=== PATIENT | female | born 1960 | race Caucasian/White ===

== ENCOUNTER → 2023-12-24 08:05 | Outpatient (REF) | payer BC, SELFPAY | LOC: RCS 08:05 | PROVIDERS: ATTENDING PHYSICIAN Internal Medicine Cardiovascular Disease; FAMILY PHYSICIAN Internal Medicine Geriatric Medicine | DX: I63.9 Cerebral infarction, unspecified (principal); E78.5 Hyperlipidemia, unspecified | CPT/HCPCS: 93307 ==

== ENCOUNTER → 2024-01-03 12:34 | Outpatient (REF) | payer BC, SELFPAY | LOC: PAVMRI 12:34 | PROVIDERS: ATTENDING PHYSICIAN Psychiatry & Neurology Neurology; FAMILY PHYSICIAN Internal Medicine Geriatric Medicine; OTHER PHYSICIAN Internal Medicine Cardiovascular Disease; OTHER PHYSICIAN Physical Medicine & Rehabilitation | DX: H93.12 Tinnitus, left ear (principal); H91.90 Unspecified hearing loss, unspecified ear; G89.29 Other chronic pain; R51.9 Headache, unspecified; I63.9 Cerebral infarction, unspecified | CPT/HCPCS: 70544; 70549; A9585 ==

== ENCOUNTER → 2024-02-26 17:18 | Outpatient (REF) | payer BC, SELFPAY | LOC: PAVMRI 17:18 | PROVIDERS: ATTENDING PHYSICIAN Physical Medicine & Rehabilitation; FAMILY PHYSICIAN Internal Medicine Geriatric Medicine; OTHER PHYSICIAN Physical Medicine & Rehabilitation | DX: M48.062 Spinal stenosis, lumbar region with neurogenic claudication (principal); M47.816 Spondylosis without myelopathy or radiculopathy, lumbar region; M48.02 Spinal stenosis, cervical region | CPT/HCPCS: 72141; 72148 ==

== ENCOUNTER → 2024-04-01 12:26 | Outpatient (REF) | payer BC, SELFPAY ==
[2024-04-04 06:57] LABS: Cardiolipin IgA Antibody <10 APL (<=11); Cardiolipin IgM Antibody <10 MPL (<=12); Cardiolipin Igg Antibody <10 GPL (<=14)
== END ==
LOC: REG 12:26
PROVIDERS: ATTENDING PHYSICIAN Internal Medicine Hematology & Oncology
DX: I63.9 Cerebral infarction, unspecified (principal)
CPT/HCPCS: 36415; 85610; 85613; 85730; 86147; 86148

== ENCOUNTER 2024-07-22 03:55 | Emergency (ER) | payer BC, SELFPAY ==
[2024-07-22 04:00] VITALS: BP 140/88
[2024-07-22] MEDS: TORADOL 60 MG IM (04:45)
--- NOTE | 2024-07-22 05:00 | ED.GENMED ---
History of Present Illness
General
Chief Complaint: Musculo-Skeletal Complaint
Source: patient and spouse
Exam Limitations: none
Time Seen by Provider: 07/22/24 04:20
Nursing documentation reviewed up to this point in time: agreed with
History of Present Illness
History of Present Illness:
This is a 64-year-old woman who has history of hypertension, hyperlipidemia, GERD, CVA, left ear tinnitus, chronic pain syndrome chronically maintained on oxycodone 10 mg 4 times daily as well as as needed Robaxin. She has history of cervicogenic
migraines, receives Botox injections sporadically. She presents with left posterior lateral neck pain that began yesterday afternoon, persistent throughout the evening. Left posterior lateral neck pain radiates to her left posterior shoulder and
occasionally down her left arm. She denies insightful injury but admits that pain is worse with rotation of her neck, worse with movement of her shoulder and mildly temporized with local massage. She took a dose of Percocet yesterday evening
without relief and then took Tylenol and a muscle relaxer at 11 PM without relief.
She has not had a fever, she denies insightful injury but has been gardening recently and underwent acupuncture treatment last week to the posterior neck and upper back and admits that solar technician aggressively massage her neck and upper back and
she was moderately sore the following day but then that pain resolved. She denies headache, denies weakness nor numbness. She denies rash. No chest pain nor coughing or shortness of breath, no palpitations.
Past History
Past History
ED Past Medical History: CVA, GERD, HTN, Hypercholesterolemia, Other (Chronic low back pain-narcotic dependent) and Other (Cervicogenic migraines, left ear tinnitus)
ED Past Surgical History: Gynecological (Tubal ligation) and Other (Nasal surgery)
Social History
Tobacco: Non-smoker
Alcohol: Occasional
Personal:
Living: with family
Employment: Employed
Family History
Family History: Negative Diabetes
Phy Exam
Physical Exam
Physical Exam:
GENERAL: 64-year-old woman appears her stated age, awake and alert, pleasant, appears in no acute distress, holding her left upper trapezius region with her right hand. is accompanying.
EYE: anicteric
NECK: Supple, no midline bony tenderness, mild tenderness left posterior lateral region with mild ropiness of left paracervical musculature as well as moderate tenderness left superior trapezius with palpable muscle spasm left superior medial
trapezius muscle. No meningismus, no significant adenopathy. Mildly restricted left rotation related to pain.
ENT: oral mucosa is moist. No rhinorrhea.
CARDIAC: Regular rate and rhythm. no murmur. No chest wall tenderness.
LUNGS: Clear breath sounds bilaterally, no acute respiratory distress, no wheezes/rales/rhonchi
ABDOMEN: Soft, nondistended, without focal tenderness, normoactive BS.
NEUROLOGICAL: Alert and oriented x3, no focal neuro deficits. Motor strength is 5/5 bilaterally. Gross sensation is intact. Gait is lara and steady.
SKIN: Warm and dry, normal color, moderate buckley sun exposed skin, skin intact. No rash.
MUSCULOSKELETAL: No C/C/E. peripheral pulses are full and equal b/l. No palpable tenderness. Mildly increased left posterior shoulder pain with abduction greater than 110 degrees. Range of motion however is full.
PSYCH: Normal and appropriate interaction.
Course
Orders/Labs/Results
Orders:
Orders
07/22/24 04:36
Ketorolac [Toradol] 60 mg IM NOW STA
Vital Signs
Initial and Last Documented VS:
Initial Vital Signs
Temp Pulse Resp BP Pulse Ox
98.9 F 69 20 140/88 100
07/22/24 04:00 07/22/24 04:00 07/22/24 04:00 07/22/24 04:00 07/22/24 04:00
Last Documented Vital Signs
Temp Pulse Resp BP Pulse Ox
98.9 F 69 20 140/88 100
07/22/24 04:00 07/22/24 04:00 07/22/24 04:00 07/22/24 04:00 07/22/24 04:00
MDM/Problems Addressed
Differential Diagnosis Includes:
History and exam most consistent with musculoskeletal pain. Palpable muscle spasm left superior trapezius, left posterior lateral cervical musculature.
Reports intermittent pain to her left shoulder and I suspect an element of radicular pain but there is no focal neurologic deficit. No associated chest pain, nothing to suggest ACS.
Pain is clearly reproducible with local palpation and with rotation of her neck and movement of her shoulder.
Although reported history of GERD, maintained on PPI and has successfully taken NSAIDs in the past without exacerbation.
No insightful injury thus no indication for radiologic imaging.
Will trial a dose of Toradol.
*Pulse Oximetry
Patient hypoxic: no
*Critical Care Note
Total Time (30-74mins, 75-104mins- exclusive of procedures): Not Applicable
Update Note
Update Note:
07/22/2024 0607 AM
Patient reexamined, lying on her left side, sleeping, easily arousable.
Reports feeling markedly improved with marked improvement in left lateral neck, left shoulder discomfort after Toradol.
Will treat with short course of ibuprofen for pain.
Recommend she continue supportive measures, local heat, she can also trial lidocaine patch.
Continue PPI for GI protection and recommend she take ibuprofen with food.
Prompt follow-up with PCP for recheck.
ED Attending Note
-
Portions of this chart may have been created with voice recognition software.� Occasional wrong word or��sound alike� substitutions may have occurred due to the inherent limitations of voice recognition software.
Discharge Plan
Departure
Patient Disposition: Home (Routine Discharge)
Date of Disposition: 07/22/24
Time of Disposition: 06:07
Patient with high blood pressure during this ER visit?: No
Condition: Good
Discharge Problem:
Strain of cervical portion of left trapezius muscle
Instructions: Cervical Muscle Strain
Prescriptions:
New
ibuprofen 600 mg tablet
600 mg PO QID PRN (Reason: fever or pain) Qty: 20 0RF
No Action
atorvastatin 40 MG tablet
40 mg PO DAILY
lisinopril 5 MG tablet
5 mg PO .IN THE AM
multivitamin [Multi-Day] 1 EACH tablet
1 ea PO DAILY
pantoprazole 20 MG tablet,delayed release (DR/EC)
20 mg PO BID
bupropion HCl 300 MG tablet extended release 24 hr
300 mg PO DAILY
Magnesium
1 tab PO DAILY
Vitamin C:
1 tab PO DAILY
Vitamin D
1,000 units PO DAILY
ibuprofen 600 MG tablet
600 mg PO PRN PRN (Reason: pain)
cefdinir [Omnicef] 300 MG capsule
300 mg PO BID Qty: 0 0RF
Referrals:
Abilio Kramer DO [Family Provider] - Call in 1-3 days for appt
Interventions
Interventions:
*Risk Screen - Suicide Last Done: 07/22/24 04:00
*General Assessment Last Done: 07/22/24 04:00
*Neglect/Abuse Screening Last Done: 07/22/24 04:00
ED- Fall Risk Assessment Last Done: 07/22/24 04:00
ED-Musculoskeletal Assessment Last Done: 07/22/24 04:21
Discharge Date and Time
Print Language: KIS[place]HILI
== END 2024-07-22 06:46 | disposition home or self-care (01) ==
LOC: EMR 03:55
PROVIDERS: EMERGENCY PHYSICIAN Emergency Medicine; FAMILY PHYSICIAN Internal Medicine Geriatric Medicine
DX: S16.1XXA Strain of muscle, fascia and tendon at neck level, initial encounter (principal); S29.012A Strain of muscle and tendon of back wall of thorax, initial encounter; X58.XXXA Exposure to other specified factors, initial encounter; E78.00 Pure hypercholesterolemia, unspecified; I10 Essential (primary) hypertension; K21.9 Gastro-esophageal reflux disease without esophagitis; Z86.73 Personal history of transient ischemic attack (TIA), and cerebral infarction without residual deficits; Z98.51 Tubal ligation status
CPT/HCPCS: 99282; 96372

== ENCOUNTER → 2024-10-29 07:05 | Day surgery (SDC) | payer BC, SELFPAY | END | disposition home or self-care (01) | LOC: CATH 07:05 | PROVIDERS: ATTENDING PHYSICIAN Internal Medicine Cardiovascular Disease; FAMILY PHYSICIAN Internal Medicine Geriatric Medicine; OTHER PHYSICIAN Internal Medicine Cardiovascular Disease | DX: I08.3 Combined rheumatic disorders of mitral, aortic and tricuspid valves (principal); Z86.73 Personal history of transient ischemic attack (TIA), and cerebral infarction without residual deficits; I10 Essential (primary) hypertension; E78.5 Hyperlipidemia, unspecified; K21.9 Gastro-esophageal reflux disease without esophagitis; Q21.12 Patent foramen ovale; Z79.82 Long term (current) use of aspirin | CPT/HCPCS: 93312; 93320; 93325 ==

== ENCOUNTER 2025-01-05 12:27 | Day surgery (SDC) | payer BC, SELFPAY ==
[2025-01-05 12:42] VITALS: BMI 23.9
--- NOTE | 2025-01-05 14:42 | ITS.CL.IMPLP ---
Industrial Pharmacist - Implant Loop
Implant Loop
Procedure Report:
Date of Procedure: 2024
Primary Care Provider: Dr. Abilio Worrell
Primary asic design engineer: Dr. Eva Whitehead
Procedure: Insertable Loop Recorder Implantation
Indication:
Cryptogenic CVA
Procedure:
The patient was brought to the procedure area in a fasting state. The anterior chest was prepped and draped in standard sterile fashion. The fourth intercostal space along the left sternal border was identified and this area was anesthetized with 10
mL of 1% lidocaine. After gathering the skin in this area, a small punch incision was made at approx intercostal space 4-5 at left costo-sternal junction using the provided scalpel/punch tool. The loop recorder was loaded into the tunneling device.
A tunnel was created in the subcutaneous tissue at a 45� angle along the coronal plane away from the sternum and towards the left flank. The tunneling device was inverted and the plunger was depressed, inserting the loop recorder into the
subcutaneous space. The tunneling device was removed. Manual pressure provide hemostasis. Adequate signal was confirmed. The skin was closed with steri-strips. The estimated blood loss was < 1 cc. A clean dressing was placed over the wound.
There were no complications.
Implant:
[employer]onic Reveal LINQ
Conclusion: Uncomplicated implantation of loop recorder.
Recommendation: Routine ILR care.
Copy:
Dr. Abilio Worrell
Dr. Eva Whitehead
== END 2025-01-05 13:36 | disposition home or self-care (01) ==
LOC: CATH 12:27
PROVIDERS: ATTENDING PHYSICIAN Internal Medicine Cardiovascular Disease; FAMILY PHYSICIAN Internal Medicine Geriatric Medicine; OTHER PHYSICIAN Internal Medicine Cardiovascular Disease
DX: Z09 Encounter for follow-up examination after completed treatment for conditions other than malignant neoplasm (principal); Z86.73 Personal history of transient ischemic attack (TIA), and cerebral infarction without residual deficits; Z79.82 Long term (current) use of aspirin; Z79.899 Other long term (current) drug therapy
CPT/HCPCS: 33285; C1764

== ENCOUNTER 2025-05-04 06:08 | Day surgery (SDC) | payer BC, SELFPAY ==
[2025-04-29 09:27] VITALS: BMI 25.3
[2025-04-29 09:53] LABS: % Basophils 0.5 % (0-2); % Eosinophils 1.8 % (0-6); % Immature Granulocytes 0.2 % (0-0.5); % Lymphocytes 34.6 % (20.5-51.1); % Monocytes 10.1 % (1.7-9.3); % Neutrophils 52.8 % (42.2-75.2); Absolute Eosinophils 0.1 10^3/uL (0-0.7); Absolute Lymphocytes 2.1 10^3/uL (1.2-3.4); Absolute Monocytes 0.6 10^3/uL (0.1-0.6); Absolute Neutrophils 3.2 10^3/uL (1.4-6.5); Hematocrit 38.4 % (37.0-47.0); Hemoglobin 13.1 g/dL (12.0-16.0); Mean Corp Hgb Conc. 34.1 g/dL (33.0-37.0); Mean Corpuscular Volume 85.1 fL (81.0-99.0); Mean Platelet Volume 8.7 fL (7.4-10.4); Nucleated Red Blood Cells % 0 %; Platelet Count 342 10^3/uL (130-400); Red Blood Cell Count 4.51 10^6/uL (4.20-5.40); Red Cell Dist. Width 14.1 % (11.5-14.5)
[2025-04-29 10:24] LABS: ALT (SGPT) 31 U/L (0-35); AST (SGOT) 30 U/L (14-36); Albumin 4.3 g/dl (3.5-5.0); Alkaline Phosphatase 81 U/L (38-126); Blood Urea Nitrogen 18 mg/dl (7-17); Calcium 9.7 mg/dl (8.4-10.2); Carbon Dioxide 30 mmol/L (22-30); Chloride 103 mmol/L (98-107); Estimated Creatinine Clearance 61 ml/min; Glucose 90 mg/dl (70-99); Potassium 4.1 mmol/L (3.5-5.1); Sodium 138 mmol/L (135-145); Total Bilirubin 0.6 mg/dl (0.2-1.3); Total Protein 6.8 g/dl (6.3-8.2); eGFR > 60.00
[2025-05-04] VITALS (27 sets, daily range): BP systolic 109–151; BP diastolic 63–113; BMI 23.9
[2025-05-04] MEDS: LOW STRENGTH ASPIRIN 81 MG PO (07:27)
[2025-05-04] MEDS: PLAVIX 600 MG PO (07:27)
[2025-05-04] MEDS: ANCEF 10 IV (07:40)
[2025-05-04 08:46] LABS: ACT-LR - POC 258 Seconds (116-155)
[2025-05-04 08:54] LABS: ACT-LR - POC 313 Seconds (116-155)
[2025-05-04 09:16] LABS: ACT-LR - POC 295 Seconds (116-155)
--- NOTE | 2025-05-04 10:08 | ITS.CL.PN ---
Addendum entered and electronically signed by Payton Fink MD 05/05/25 14:48:
Correction:
1. Right common femoral vein, 9 Colombian sheath (11cm), under ultrasound guidance using a micropuncture kit.
2. Right common femoral vein, 9 Colombian sheath (23cm), under ultrasound guidance using a micropuncture kit.
Ultrasound was utilized for vascular access. The right femoral vein were visualized under ultrasound, and the vessel was patent. An image was stored permanently in the patient's medical record. Under direct ultrasound guidance, two 9 Colombian
sheaths (11cm and 23cm) were inserted into the right common femoral vein, using a micropuncture kit through a modified Seldinger technique.
Addendum entered and electronically signed by Payton Fink MD 05/05/25 14:33:
Addendum:
Procedures performed: 1. Percutaneous PFO closure with 30 mm Amplatzer Talisman PFO Occluder (REF #[id number] ; LOT #[id number])
2. Right heart catheterization.
3. US guided access.
ACCESS (CPT 37163 x 2):
1. Right common femoral vein, 9 Colombian sheath (11cm), under ultrasound guidance using a micropuncture kit.
2. Left common femoral vein, 8 Colombian sheath (23cm), under ultrasound guidance using a micropuncture kit.
Ultrasound was utilized for vascular access. The right femoral vein were visualized under ultrasound, and the vessel was patent. An image was stored permanently in the patient's medical record. Under direct ultrasound guidance, two 9 Colombian
sheaths (11cm and 23cm) were inserted into the right common femoral vein, using a micropuncture kit through a modified Seldinger technique.
Payton Fink MD, [facility], [facility]
Original Note:
Personnel And Payroll Technician - Procedure Note
Procedure
Procedure Note:
RIGHT HEART CATHETERIZATION AND PATENT FORAMEN OVALE (PFO) CLOSURE
Date of procedure: May 04, 2025
Referring physician: Eva Whitehead MD
Pre-op diagnosis: Cryptogenic stroke, presence of PFO
Post-op diagnosis: Cryptogenic stroke, presence of PFO
Indication: Cryptogenic stroke
Procedure performed: Percutaneous PFO closure with 30 mm Amplatzer Talisman PFO Occluder (REF #[id number] ; LOT #[id number])
art history professor: Payton Fink MD, [facility], [facility]
Type of echocardiography: Intracardiac Echocardiography (ICE)
Access:
1. Two 9 Colombian sheaths (9Fr x 11cm and 9Fr x 25cm) in the right common femoral vein using a micropuncture kit under US guidance.
RIGHT HEART CATHETERIZATION
Hemodynamics (mmHg):
RA (m) : 9
RV (s/d,m) : 28/6, 10
PA (s/d, m) : 26/12, 17
PCWP (m) : 14
PA saturation: 79.3% on 8L Oxygen
AO saturation non-invasively 97.0% on 8L Oxygen
Pulm Vein saturation: 99.9% on 8L Oxygen
Cardiac Output: 5.3 L/min by Derek calculation
Cardiac Index : 3.2 L/min/m-2 by Derek calculation
Systemic vascular resistance: 1092 dsc^(-5)
Pulmonary vascular resistance: 1.31 Wood unit
Procedure:
The patient was brought to the interventional cardiology suite in fasting state. The patient was given Plavix 600mg pre-procedurally and Ancef IV was given by Anesthesia. Bilateral femoral areas were prepped and draped in standard sterile fashion.
The right femoral vein was accessed about 1cm apart twice using a modified Seldinger technique and two 9 Colombian sheaths were placed 1 is below the other (short 9 Colombian by 11 cm on the top and a long 9 Colombian by 25 cm at the bottom. Full dose IV
heparin was given to achieve an ACT greater than 300 seconds, which was maintained throughout the procedure. After confirming that there was no significant step up on the shunt run by performing a right heart catheterization, ICE catheter was
advanced through the 9 Colombian by 25 cm venous sheath and basic images were obtained and saved including the view of the interatrial septum and the PFO seen by color Doppler. Using ICE and fluoroscopy guidance, a 0.035' J wire was advanced from the
right femoral vein and up into the right atrium and a 6Fr. multipurpose catheter was advanced over this wire. The J-wire was removed and catheter was flushed. A Avilez wire was advanced through the multipurpose catheter and after multiple passes we
successfully crossed the PFO into the left atrium. The multipurpose catheter was advanced over the wire into the left upper pulmonary vein. The wire was removed and the catheter was flushed. A 0.035 superstiff Amplatz wire was advanced through the
multipurpose catheter and parked into the left upper pulmonary vein.
The multipurpose catheter was removed. The 9 Colombian sheath was removed. Based on the anatomy (very mobile interatrial septal aneurysm and securing diam thickness of 9 mm), we decided to move forward with implantation of a 30 mm Amplatzer Talisman
PFO Occluder device. On the back table, we turned our attention to prepping the closure device. A 30 mm Amplatzer Talisman PFO Occluder device was placed in a bowl of heparinized saline. The Tuohy-Gaye valve and its extension were appropriately
flushed. The device was submerged in saline and the valve and extension were slowly flush with water while the occlusion device was retracted into it, ensuring that the device was completely de-aired.
The 9 Colombian Talisman delivery sheath was advanced over the Super Stiff Amplat'sz wire into the IVC. The dilator was retracted at this point to completely de-aired the system. The sheath itself was then advanced over the Super Stiff Amplatz wire
into the left atrium and the Super Stiff wire was taken out. The sheath was de-aired and flushed. We connected the sheath with the closure device assembly with a wet to wet connection. The occluder was advanced through the sheath and into the left
atrium. Left atrial disc was deployed. The entire assembly was retracted until the left atrial disc was firmly against the interatrial wall under fluoroscopy and ICE guidance. The right atrial disc was deployed under tension and allowed to settle on
the right atrial side of the septum.
Echocardiographic images were obtained in multiple views showing good placement of the occlusion device. The interatrial septum is clearly visible between the 2 discs. The discs do not appear to be interfering with the aorta. After performing
appropriate pushing and pulling of the device to ensure good placement ([place] wiggle), the device was released. Once again, echocardiography confirmed good placement. ICE catheter was then taken out.
The Talisman sheath and the 9Fr x 25mm sheath was removed from the right femoral vein and a [id number] suture was placed over access site with good hemostasis. Additional manual pressure was held for 10 minutes. The patient tolerated the
procedure well with no acute complications. She remained hemodynamically stable throughout the procedure.
Fluoro Time: 9.6 min, Dose: 44.95 mGy, DAP : 5.9 gy.cm2
Conclusions:
1. Successful ICE guided percutaneous PFO closure with 30 mm Amplatzer Talisman PFO Occluder (REF #[id number] ; LOT #[id number]) with no acute complications.
Recommendations:
1. Routine care post PFO closure.
2. Limited weight bearing for 2 days.
3. DAPT with aspirin and clopidogrel for 6 months, followed by aspirin indefinitely.
4. Limited echocardiogram prior to discharge.
5. Removal of [id number] stitch prior to discharge.
6. Repeat echocardiogram with bubble study in 1 month with outpatient cardiology follow up.
Payton Fink MD, [facility], [facility]
Copy: Eva Whitehead MD
[2025-05-04] MEDS: SUBLIMAZE 25 MCG IV ×2 (12:49→14:24)
[2025-05-04] MEDS: ANCEF 5 IV (14:20)
[2025-05-04] MEDS: ROXICODONE 10 MG PO ×2 (16:31→20:48)
[2025-05-04] MEDS: TYLENOL 325 MG PO ×2 (16:32→20:47)
--- NOTE | 2025-05-04 18:26 | PTCARENOTE ---
Received pt from rd lab technician. VSS. Right groin dressing clean, dry and intact. Minimal ecchymosis noted, medially. No hematoma noted. Pt c/o minimal tenderness. Orders noted. Will monitor.
[2025-05-04] MEDS: DIOVAN 80 MG PO (20:47)
[2025-05-04] MEDS: AMBIEN 10 MG PO (23:23)
[2025-05-05 05:16] VITALS: BP 93/57
[2025-05-05] MEDS: TYLENOL 325 MG PO (05:44)
--- NOTE | 2025-05-05 05:58 | PTCARENOTE ---
500 am right groin cath site assessment presented with a bloody drsg,slight hematoma unchanged in size from 2am,dsrg removed,2 puncture sites slow ooze of blood,pressure applied with a sterile drsg,then quickly removed and a hemostat pad,sterile
drsg replaced and kris pressure applied for 5minutes and then sandbag. Pt medicated with Oxycodone due to chronic back pain.Close observation ongoing,VS stable.
k
[2025-05-05 06:03] LABS: Hematocrit 34.7 % (37.0-47.0); Mean Corp Hgb Conc. 34.6 g/dL (33.0-37.0); Mean Corpuscular Hgb 29.1 pg (27.0-31.0); Mean Platelet Volume 8.8 fL (7.4-10.4); Platelet Count 258 10^3/uL (130-400); Red Blood Cell Count 4.13 10^6/uL (4.20-5.40); Red Cell Dist. Width 14.5 % (11.5-14.5); White Blood Cell Count 8.7 10^3/uL (4.8-10.8)
[2025-05-05 06:15] LABS: Blood Urea Nitrogen 17 mg/dl (7-17); Calcium 9.4 mg/dl (8.4-10.2); Carbon Dioxide 30 mmol/L (22-30); Chloride 108 mmol/L (98-107); Estimated Creatinine Clearance 77 ml/min; Glucose 89 mg/dl (70-99); Potassium 3.6 mmol/L (3.5-5.1); Sodium 141 mmol/L (135-145); eGFR > 60.00
--- NOTE | 2025-05-05 06:48 | PTCARENOTE ---
Right groin assessed again at this time,drsg is bloody but contained,sandbag reapplied,pt was medicated with Oxycodone for back pain,pt stated her back did feel slightly better.Close observation ongoing.
--- NOTE | 2025-05-05 07:00 | PTCARENOTE ---
Right groin checked with on coming RN,jose luisg unchanged,sandbag intact.
[2025-05-05 08:12] VITALS: BP 107/60
[2025-05-05] MEDS: ROXICODONE 10 MG PO (08:33)
--- NOTE | 2025-05-05 09:18 | W.PN.CARDCBS ---
Addendum entered and electronically signed by Payton Fink MD 05/05/25 11:47:
I saw and examined the patient.
The Entry Table Operator's note was reviewed and I agree with the note.
Comment: Patient is status post successful 30 mm PFO occluder device yesterday, May 04, 2025. She stayed overnight given mild ongoing ooze at one of the 2 right common femoral venous access sites. Hemoglobin remained stable overnight.
Vital signs and lab work are reviewed. Patient is in mild distress due to chronic back pain and being on bedrest, regular rate, normal S1 and S2, no murmurs, rubs or gallops, lungs are clear to auscultation bilaterally, abdomen is soft, nontender,
nondistended with active bowel sounds, warm extremities without significant edema. Right common femoral access site with mild ongoing ooze but without evidence of any hematoma or bruit.
Recommendations:
1. Recurrent pressure was held by me and I placed D-Stat band was applied this morning which seems to have halted use for now. We will get her out of bed into a chair and ambulate to assess if the right groin site continues to remain stable.
Given no evidence of hematoma or bruit on exam, holding off on any imaging studies for now unless she continues to bleed.
2. Plan is for dual antiplatelet therapy with aspirin and Plavix for 6 months and 1 month repeat limited transthoracic echocardiogram as an outpatient with a bubble study.
3. I reviewed the limited echocardiogram post procedurally yesterday afternoon which showed no evidence of effusion and an otherwise stable device with no color-flow Doppler through it.
Anticipate discharge later today.
Payton Fink MD, [facility], [facility]
Total time spent: 31mins
Original Note:
Today's Communication / Plan
-
post PFO closure, post op slow groin ooze
DAPT ASA/Plavix 6mo, then ASA 81mg daily
poss home later today if groin site stable
Impression / Plan
-
PCP: Abilio Kramer, DO
CDY: Eva Whitehead MD
Impression:
Cryptogenic stroke 12/03/23
PFO post PFO closure 05/04/25
HTN
Hyperlipidemia
Tinnitus
Hyperthyroidism
DDD/Spinal stenosis with chronic pain
GERD
Anxiety/Depression
former smoker
Plan:
post PFO closure, had issues with R groin ooze o/n admitted for observation
Groin continued to have slow ooze through the night, multiple manual compression attempts, and lido/epi injections
Hbg stable at 12
post procedure ECHO with no leak, will need f/u Echo with bubble in 1 mo
DAPT ASA/Plavix for 6 mo, then ASA 81mg daily
continue valsartan, HCTZ for HTN
chronic back pain- continue pain meds, methocarbamol PRN
Activity restrictions reviewed
f/u Dr. Velasquez in 1 mo
If groin stable when oob plan for home later today
Progress Note - Food And Beverage Controller
Subjective
Date of Service: May 05, 2025
denies cp, sob, chronic back pain, unable to void in bed, st cath this am
Objective
Labs:
05/05/25 05:19
05/05/25 05:19
Labs
Hgb 12.0 g/dL (12.0-16.0) 05/05/25 05:19
Hct 34.7 % (37.0-47.0) L 05/05/25 05:19
Plt Count 258 10^3/uL (130-400) D 05/05/25 05:19
Sodium 141 mmol/L (135-145) 05/05/25 05:19
Potassium 3.6 mmol/L (3.5-5.1) 05/05/25 05:19
BUN 17 mg/dl (7-17) 05/05/25 05:19
Creatinine 0.6 mg/dL (0.6-1.0) 05/05/25 05:19
Glucose 89 mg/dl (70-99) 05/05/25 05:19
Vital Signs and I&O:
Vital Signs
Temp Pulse Resp BP Pulse Ox
98.1 F 68 20 93/57 99
05/05/25 05:00 05/05/25 05:45 05/04/25 19:51 05/05/25 05:16 05/05/25 05:00
Vital Signs
Temp Pulse Resp BP Pulse Ox
98.1 F 68 20 93/57 99
05/05/25 05:00 05/05/25 05:45 05/04/25 19:51 05/05/25 05:16 05/05/25 05:00
Intake & Output
05/03/25 05/04/25 05/05/25 05/06/25
06:59 06:59 06:59 06:59
Intake Total 360 / 360
Output Total 975 / 975
Balance -615 / -615
Physical Exam
Physical Exam
NAD< AOX3
S1, S2, RRR, no murmus
CTAB, non labored, no wheeze
SNTND bsx4
R fem site with small drainage, manual pressure being held, soft, no HT, mild tenderness from pressure
--- NOTE | 2025-05-05 09:50 | CM ---
Reviewed chart. Met with Mrs. Middleton to review discharge plans. She states prior to admission she resides with her spouse in a two story home with four steps to enter. She states she has a full flight of steps to get to bedroom. She states
she has full bathroom on both floors. She states prior to admission she was independent with ambulation and adls. She state she does not have any DME in the home. She states she has a prescription plan and uses [facility]. The discharge plan
is to return home with her spouse when medically stable.
[2025-05-05] MEDS: KCL 20 MEQ PO (10:18)
[2025-05-05] MEDS: PLAVIX 75 MG PO (10:19)
[2025-05-05] MEDS: WELLBUTRIN XL (24 hour extended release) 150 MG PO (10:19)
[2025-05-05] MEDS: LIPITOR 80 MG PO (10:19)
[2025-05-05] MEDS: LOW STRENGTH ASPIRIN 81 MG PO (10:19)
[2025-05-05] MEDS: PROTONIX 40 MG PO (10:19)
[2025-05-05] MEDS: TAPAZOLE 2.5 MG PO (11:02)
--- NOTE | 2025-05-05 11:31 | PTCARENOTE ---
Assumed care of pt w/ continuing ooze from right groin site. Sandbag remains on pt. Manual pressure w/ hemostatic patch for 30 minutes. ASSEMBLER INSTALLER STRUCTURES and MD evaluated pt. Dressing changed. No further bleeding noted. Pt assisted oob to chair at 1020 am.
At this time, pt's right groin dressing remains clean, dry and intact. Will monitor.
[2025-05-05 11:57] VITALS: BP 110/72
--- NOTE | 2025-05-05 12:27 | W.DS.TRANS ---
DC Summary - Insulation Applicator
-
Discharge Instructions:
Discharge Diagnosis/Procedures PFO closure
Diet Low Cholesterol
Driving Restrictions No driving for 24 hours
Others Tests Echo with bubble study in 1 month- to be
scheduled per cardiology office
Instructions: Clopidogrel
Stand-Alone Forms: DC Instructions- Cath/EP Lab
Changes to Home Medications: No
Discharge Medications:
DC Medications w/original date entered in [employer]
cholecalciferol (vitamin D3) 25 mcg (1,000 unit) capsule (Vitamin D3) 25 mcg PO DAILY ##0 11/17/16
ibuprofen 600 mg tablet 600 mg PO QID PRN fever or pain #20 tabs 07/22/24
hydrochlorothiazide 50 mg tablet 50 mg PO DAILY 10/29/24
lorazepam 0.5 mg tablet 0.5 mg PO BID PRN anxiety 10/29/24
methimazole 5 mg tablet 2.5 mg PO Q48H 10/29/24
oxycodone-acetaminophen 10 mg-325 mg tablet (Percocet) 1 tab PO Q5H PRN pain 10/29/24
pantoprazole 40 mg tablet,delayed release (Protonix) 40 mg PO DAILY 10/29/24
zolpidem 10 mg tablet (Ambien) 10 mg PO HS PRN to sleep 10/29/24
aspirin 81 mg chewable tablet 81 mg PO DAILY 01/05/25
bupropion HCl 150 mg 24 hr tablet, extended release 150 mg PO DAILY 01/05/25
multivitamin 1 tab PO DAILY 01/05/25
valsartan 80 mg tablet 80 mg PO HS 01/05/25
atorvastatin 80 mg tablet 80 mg PO DAILY 04/24/25
clopidogrel 75 mg tablet 75 mg PO DAILY #30 tabs 05/04/25
methocarbamol 750 mg tablet 750 mg PO Q8H PRN muscle spasm 05/04/25
Home Medication Changes
Pending Results: No
== END 2025-05-05 14:20 | disposition home or self-care (01) ==
LOC: CATH 06:08
PROVIDERS: Nurse Practitioner; ATTENDING PHYSICIAN Internal Medicine Interventional Cardiology; FAMILY PHYSICIAN Internal Medicine Geriatric Medicine
DX: Q21.12 Patent foramen ovale (principal); Z86.73 Personal history of transient ischemic attack (TIA), and cerebral infarction without residual deficits; I10 Essential (primary) hypertension; E78.5 Hyperlipidemia, unspecified; Z87.891 Personal history of nicotine dependence; E05.90 Thyrotoxicosis, unspecified without thyrotoxic crisis or storm; R51.9 Headache, unspecified; E03.9 Hypothyroidism, unspecified; F32.A Depression, unspecified; F41.9 Anxiety disorder, unspecified; G47.00 Insomnia, unspecified; G89.29 Other chronic pain; H93.19 Tinnitus, unspecified ear; K21.9 Gastro-esophageal reflux disease without esophagitis; E04.1 Nontoxic single thyroid nodule; M48.00 Spinal stenosis, site unspecified; M54.10 Radiculopathy, site unspecified; Z79.82 Long term (current) use of aspirin; Z79.899 Other long term (current) drug therapy
CPT/HCPCS: 93580; 93308; 36415; 80048; 80053; 85025; 85027; 85347; 93005; C1759; C1769; C1817; C1892; C1894

== ENCOUNTER 2025-05-14 13:41 | Emergency (ER) | payer BC, SELFPAY ==
[2025-05-14 13:50] VITALS: BP 147/87
[2025-05-14 14:14] VITALS: BP 137/88
[2025-05-14 15:00] VITALS: BP 131/77
[2025-05-14 15:41] LABS: % Basophils 0.6 % (0-2); % Eosinophils 0.8 % (0-6); % Immature Granulocytes 0.3 % (0-0.5); % Lymphocytes 26.5 % (20.5-51.1); % Monocytes 9.2 % (1.7-9.3); % Neutrophils 62.6 % (42.2-75.2); Absolute Eosinophils 0.1 10^3/uL (0-0.7); Absolute Lymphocytes 1.9 10^3/uL (1.2-3.4); Absolute Monocytes 0.7 10^3/uL (0.1-0.6); Absolute Neutrophils 4.5 10^3/uL (1.4-6.5); Hematocrit 35.5 % (37.0-47.0); Hemoglobin 12.3 g/dL (12.0-16.0); Mean Corp Hgb Conc. 34.6 g/dL (33.0-37.0); Mean Corpuscular Hgb 29.3 pg (27.0-31.0); Mean Corpuscular Volume 84.5 fL (81.0-99.0); Mean Platelet Volume 8.5 fL (7.4-10.4); Nucleated Red Blood Cells % 0 %; Platelet Count 467 10^3/uL (130-400); Red Cell Dist. Width 14.1 % (11.5-14.5); White Blood Cell Count 7.1 10^3/uL (4.8-10.8)
[2025-05-14 15:51] LABS: ALT (SGPT) 24 U/L (0-35); AST (SGOT) 27 U/L (14-36); Albumin 4.1 g/dl (3.5-5.0); Alkaline Phosphatase 74 U/L (38-126); Blood Urea Nitrogen 15 mg/dl (7-17); Calcium 9.4 mg/dl (8.4-10.2); Carbon Dioxide 28 mmol/L (22-30); Chloride 105 mmol/L (98-107); Glucose 78 mg/dl (70-99); Potassium 3.4 mmol/L (3.5-5.1); Sodium 140 mmol/L (135-145); Total Bilirubin 0.4 mg/dl (0.2-1.3); Total Protein 6.7 g/dl (6.3-8.2); eGFR > 60.00
[2025-05-14 16:00] VITALS: BP 139/71
[2025-05-14 17:00] VITALS: BP 136/77
[2025-05-14 17:42] LABS: INR 0.89; PT 12.4 Sec (11.4-14.6)
[2025-05-14 18:00] VITALS: BP 130/67
--- NOTE | 2025-05-14 18:40 | ED.GENMED ---
History of Present Illness
General
Chief Complaint: Heart Rate Problem
Source: patient
Exam Limitations: none
Time Seen by Provider: 05/14/25 16:30
History of Present Illness
History of Present Illness:
Patient with a PFO closure May 04. Has been on Plavix for a week. Noticing multiple areas of bruising. Concerned about a area to the right lateral breast. Also having some occasional palpitations. No syncope no chest pain no shortness of
breath.
Past History
Past History
ED Past Medical History: CVA, GERD, HTN, Hypercholesterolemia, Other (Chronic low back pain-narcotic dependent) and Other (Cervicogenic migraines, left ear tinnitus)
ED Past Surgical History: Cardiac (PFO repair), Gynecological (Tubal ligation) and Other (Nasal surgery)
Social History
Tobacco: Non-smoker
Alcohol: Occasional
Personal:
Living: with family
Employment: Employed
Family History
Family History: Negative Diabetes
Phy Exam
Physical Exam
Physical Exam:
GENERAL: Alert and oriented in no apparent distress
EYE: Orbits normal.
NECK: Supple
CARDIAC: Regular rate and rhythm
Breast: Small hematoma right lateral breast tender.
LUNGS: Clear breath sounds,normal
NEUROLOGICAL: Alert and oriented , grossly non-focal
SKIN: Warm and dry, mild area of ecchymosis to the left anterior tibia to the right shoulder. Ecchymosis to the right groin extending down the right leg.
MUSCULOSKELETAL: No edema,no deformity.Good color. No hematoma the right groin. No suspicion for aneurysm
PSYCH: Normal and appropriate interaction.
Course
Orders/Labs/Results
Orders:
Orders
05/14/25 13:44
Electrocardiogram (*1) Urgent
Reason for Study: Chest Pain
EKG- Treatment ONCE
05/14/25 15:27
CMP [Comprehensive Metabolic Panel] Urgent
Complete Blood Count/With Diff Urgent
Free T4 Urgent
TSH Reflex To Free T4 Urgent
Comment: ADD ON
05/14/25 15:29
Add On- LAB Urgent
Tests Added?: TSH Reflex to Free T4
05/14/25 17:24
PT/INR [Prothrombin Time] Urgent
05/14/25 18:43
Potassium Chloride 10% Elixir [KCl Elixir] 40 meq PO NOW STA
Abnormal Lab Results
05/14/25
15:27
Hct 35.5 L %
(37.0-47.0)
Plt Count 467 H 10^3/uL
(130-400)
Absolute Monos (auto) 0.7 H 10^3/uL
(0.1-0.6)
Potassium 3.4 L mmol/L
(3.5-5.1)
TSH (Reflex) 0.20 L uIU/ml
(0.47-4.68)
05/14/25 15:27
05/14/25 15:27
Vital Signs
Initial and Last Documented VS:
Initial Vital Signs
Temp Pulse Resp BP Pulse Ox
98.6 F 99 16 147/87 98
05/14/25 13:50 05/14/25 13:50 05/14/25 13:50 05/14/25 13:50 05/14/25 13:50
Last Documented Vital Signs
Temp Pulse Resp BP Pulse Ox
98.6 F 70 13 130/67 97
05/14/25 13:50 05/14/25 18:45 05/14/25 18:45 05/14/25 18:00 05/14/25 18:45
*Pulse Oximetry
SaO2: 99
Oxygen Mode of Delivery: Room air
Patient hypoxic: no
*EKG
Interpreted by ED Provider?: Yes
Interpretation: normal
Comparison EKG: no changes
Heart Rate: 83
Rate: normal
Rhythm: sinus
[place]: normal axis
Interval: normal interval
QRS Pattern: normal QRS
Ischemia: no ischemia
*[employer] Machine Interpretation
Rate: normal
Interpretation: normal
Heart Rate: 80
Rhythm: sinus
*Critical Care Note
Total Time (30-74mins, 75-104mins- exclusive of procedures): Not Applicable
Update Note
Update Note:
Discussed with invasive cardiology. Has some areas of ecchymosis but no serious bleeding. Nothing suspicious for a right inguinal aneurysm or pseudoaneurysm. Patient is most concerned about the lump of the right lateral breast. Clearly there is
an area of ecchymosis there. However I did explain that when this ecchymosis goes away she should follow this up and that there is no guarantee there is not a small underlying mass at this location. Invasive cardiology would like her to continue
her dual antiplatelet therapy and follow-up tomorrow
ED Attending Note
-
Portions of this chart may have been created with voice recognition software.� Occasional wrong word or��sound alike� substitutions may have occurred due to the inherent limitations of voice recognition software.
Discharge Plan
Departure
Patient Disposition: Home (Routine Discharge)
Date of Disposition: 05/14/25
Time of Disposition: 18:41
Patient with high blood pressure during this ER visit?: Yes
Discharge Problem:
Multiple areas of ecchymosis, Secondary to dual antiplatelet therapy, Recent PFO closure
Instructions: BLOOD PRESSURE
Prescriptions:
No Action
cholecalciferol (vitamin D3) [Vitamin D3] 25 mcg (1,000 unit) Capsule
25 mcg PO DAILY Qty: 0
ibuprofen 600 mg tablet
600 mg PO QID PRN (Reason: fever or pain) Qty: 20 0RF
hydrochlorothiazide 50 mg Tablet
50 mg PO DAILY
lorazepam 0.5 mg Tablet
0.5 mg PO BID PRN (Reason: anxiety)
oxycodone-acetaminophen [Percocet] 10-325 mg Tablet
1 tab PO Q5H PRN (Reason: pain)
pantoprazole [Protonix] 40 mg Tablet,Delayed Release (Dr/Ec)
40 mg PO DAILY
methimazole 5 mg Tablet
2.5 mg PO Q48H
zolpidem [Ambien] 10 mg Tablet
10 mg PO HS PRN (Reason: to sleep)
multivitamin Tablet
1 tab PO DAILY
valsartan 80 mg Tablet
80 mg PO HS
aspirin 81 mg Tablet,Chewable
81 mg PO DAILY
bupropion HCl 150 mg Tablet Extended Release 24 Hr
150 mg PO DAILY
atorvastatin 80 mg Tablet
80 mg PO DAILY
methocarbamol 750 mg Tablet
750 mg PO Q8H PRN (Reason: muscle spasm)
clopidogrel 75 mg tablet
75 mg PO DAILY Qty: 30 6RF
Referrals:
Abilio Kramer DO [Family Provider, Internal Medicine]
Activity Restrictions/Additional Instructions:
Follow-up tomorrow with cardiology
When the hematoma of the right lateral breast resolves, it should be reevaluated by your primary physician or [facility]
Return with worsening palpitations chest pain shortness of breath fever or any other concerning symptoms
Follow-up the add on thyroid test that we did tonight
Interventions
Interventions:
*Risk Screen - Suicide Last Done: 05/14/25 13:50
*General Assessment Last Done: 05/14/25 13:50
*Neglect/Abuse Screening Last Done: 05/14/25 13:50
*ED- Fall Risk Assessment Last Done: 05/14/25 13:50
*ED COVID-19 Vaccine History Last Done: 05/14/25 13:50
*Nursing Disposition Last Done: 05/14/25 19:00
ED- Cardiac Assessment Last Done: 05/14/25 15:30
ED- Pulmonary Assessment Last Done: 05/14/25 15:30
Discharge Date and Time
Discharge Date/Time: 05/14/25 19:00
Print Language: CITIZEN [place]
[2025-05-14] MEDS: KCL ELIXIR 40 MEQ PO (18:48)
== END 2025-05-14 19:00 | disposition home or self-care (01) ==
LOC: EMR 13:41
PROVIDERS: EMERGENCY PHYSICIAN Emergency Medicine; FAMILY PHYSICIAN Internal Medicine Geriatric Medicine
DX: R23.3 Spontaneous ecchymoses (principal); Z79.02 Long term (current) use of antithrombotics/antiplatelets; R00.2 Palpitations; E78.00 Pure hypercholesterolemia, unspecified; G89.29 Other chronic pain; I10 Essential (primary) hypertension; Z86.73 Personal history of transient ischemic attack (TIA), and cerebral infarction without residual deficits; Z87.74 Personal history of (corrected) congenital malformations of heart and circulatory system
CPT/HCPCS: 99284; 80053; 84439; 84443; 85025; 85610; 93005

== ENCOUNTER → 2025-05-28 08:21 | Outpatient (REF) | payer BC, SELFPAY ==
--- NOTE | 2025-05-28 09:27 | PTCARENOTE ---
#20 gladis placed Rt AC. Bubble study done with Liudmila, oil bay technician. INT removed. dsg applied. pressure held. No bleeding noted.
== END ==
LOC: RCS 08:21
PROVIDERS: ATTENDING PHYSICIAN Internal Medicine Interventional Cardiology; FAMILY PHYSICIAN Internal Medicine Geriatric Medicine; REFERRING PHYSICIAN Nurse Practitioner
DX: Q21.12 Patent foramen ovale (principal); I63.9 Cerebral infarction, unspecified; Z95.818 Presence of other cardiac implants and grafts
CPT/HCPCS: 71046; 93306

== ENCOUNTER → 2025-06-02 09:50 | Outpatient (REF) | payer BC, SELFPAY | LOC: WDC 09:50 | PROVIDERS: ATTENDING PHYSICIAN Internal Medicine Geriatric Medicine | DX: N63.10 Unspecified lump in the right breast, unspecified quadrant (principal); N63.11 Unspecified lump in the right breast, upper outer quadrant | CPT/HCPCS: 76642; 77062; 77066 ==

== ENCOUNTER → 2025-07-01 10:14 | Outpatient (REF) | payer BC, SELFPAY | LOC: RAD 10:14 | PROVIDERS: ATTENDING PHYSICIAN Internal Medicine Endocrinology, Diabetes & Metabolism; FAMILY PHYSICIAN Internal Medicine Geriatric Medicine | DX: E05.20 Thyrotoxicosis with toxic multinodular goiter without thyrotoxic crisis or storm (principal) | CPT/HCPCS: 76536 ==

== ENCOUNTER 2025-07-07 01:39 | Emergency (ER) | payer BC, SELFPAY ==
[2025-07-07 02:03] VITALS: BP 160/101
--- NOTE | 2025-07-07 05:09 | ED.GENMED ---
History of Present Illness
General
Chief Complaint: Musculo-Skeletal Complaint
Source: patient
Time Seen by Provider: 07/07/25 04:53
History of Present Illness
History of Present Illness:
65-year-old female with multiple prior medical problems presents emergency department complaints of right shoulder pain. She says that she has had 'problems' in her right shoulder for some time and in fact has received several cortisone shots most
recently in March. She was told that if she gets recurrent pain she is going to need another MRI to reevaluate treatment plan. She states that she thinks she 'aggravated it', about a week ago when she adjusted a suitcase in an overhead compartment.
Pain got particularly worse on Sunday, described as 'shooting' in quality localized to the right shoulder. The pain is present at rest and much worse with certain movements. She denies associated weakness, numbness, tingling, swelling, bruising,
fever, chills, rash, chest pain, neck pain, headache, dizziness, or other complaints.
Past History
Past History
ED Past Medical History: CVA, GERD, HTN, Hypercholesterolemia, Other (Chronic low back pain-narcotic dependent) and Other (Cervicogenic migraines, left ear tinnitus)
ED Past Surgical History: Cardiac (PFO repair), Gynecological (Tubal ligation) and Other (Nasal surgery)
Social History
Tobacco: Non-smoker
Alcohol: Occasional
Drug: None
Personal:
Living: with family
Employment: Employed
Family History
Family History: Negative Diabetes
Phy Exam
Physical Exam
Physical Exam:
GENERAL: Alert , appears mildly uncomfortable at rest
EYE: pupils equal and reactive
NECK: Supple, no significant adenopathy.
ENT: o/p clr, mmm.
CARDIAC: Regular rate and rhythm .
LUNGS: Clear breath sounds bilaterally, no acute respiratory distress, no wheezes/rales/rhonchi
ABDOMEN: Soft, without focal tenderness, no r/g, no cvat
NEUROLOGICAL: Alert and oriented, no focal neuro deficits
SKIN: Warm and dry, skin intact.
MUSCULOSKELETAL: No edema, well perfused. Patient has tenderness to palpation at the right AC area without associated redness, warmth, swelling, deformity. She describes difficulty ranging the shoulder due to pain. Motor strength 5 out of 5,
sensory intact to light touch, capillary refill normal, normal distal pulses
PSYCH: Normal and appropriate interaction.
Course
Orders/Labs/Results
Orders:
Orders
07/07/25 02:08
Shoulder, Right, Trauma [CR Shoulder, Trauma - Right] Urgent
Comment:
Reason For Exam: severe pain
07/07/25 05:05
Electrocardiogram (*1) Urgent
Reason for Study: Other
Other Reason for Exam: shoulder pain
EKG- Treatment ONCE
Ketorolac [Toradol] 15 mg IM NOW STA
07/07/25 05:10
HYDROmorphone [Dilaudid] 0.5 mg IM NOW STA
07/07/25 06:29
diazePAM [Valium Injection] 5 mg IM NOW STA
07/07/25 07:42
Sling Right-Treatment ONCE
Vital Signs
Initial and Last Documented VS:
Initial Vital Signs
Temp Pulse Resp BP Pulse Ox
99.0 F 86 18 160/101 98
07/07/25 02:03 07/07/25 02:03 07/07/25 02:03 07/07/25 02:03 07/07/25 02:03
Last Documented Vital Signs
Temp Pulse Resp BP Pulse Ox
98.2 F 71 16 165/78 100
07/07/25 06:48 07/07/25 08:21 07/07/25 08:21 07/07/25 08:21 07/07/25 08:21
*Pulse Oximetry
SaO2: 98
Oxygen Mode of Delivery: Room air
Patient hypoxic: no
*Critical Care Note
Total Time (30-74mins, 75-104mins- exclusive of procedures): Not Applicable
Update Note
Update Note:
Patient presents to the Emergency Department with ____right shoulder pain
Number and Complexity of Problems Addressed at the Encounter
� Chronic conditions affecting care:
� Acute Exacerbation and/or Progression of Chronic Illness:
� Differential Diagnosis includes: Exacerbation of chronic pain, rotator cuff injury, bursitis, anginal equivalent, shoulder dislocation, etc. etc.
Amount and/or Complexity of Data to be Reviewed and Analyzed
� I performed an independent evaluation of and my interpretation is:
EKG: Read by me, normal sinus rhythm, normal rate, normal axis, no acute ischemia
CT:
Xrays: Read by me NAD
Laboratory Studies:
Other:
� Review of other/old records reveals:
� Clinical information was obtained by an independent historian:
� Prescriptions/Medications Considered but not given:
� Further testing considered but not performed:
Risk of Complications and/or Morbidity or Mortality of Patient Management
� Social determinants of health affecting care:
� Discussion with other providers (PCP, Hospitalists, Consultants, etc):
� Escalation of care including admission/observation vs risk of discharge considered:Nnote am avoiding toradol due to hx of recent bruising and plavix/asa use now.
Upon reassessment, patient feels better, would like to go home, no new symptoms. No chest pain, ECG does not suggest ACS. Symptoms very consistent with exacerbation of somewhat subacute/chronic right shoulder pain. She has seen Dr. Serrano in the
past andplans to contact him upon discharge today.
ED Attending Note
-
Portions of this chart may have been created with voice recognition software.� Occasional wrong word or��sound alike� substitutions may have occurred due to the inherent limitations of voice recognition software.
Discharge Plan
Departure
Patient Disposition: Home (Routine Discharge)
Date of Disposition: 07/07/25
Time of Disposition: 07:42
Patient with high blood pressure during this ER visit?: Yes
Condition: Good
Discharge Problem:
Anterior shoulder pain
Instructions: How to Use a Shoulder Sling, Shoulder pain, BLOOD PRESSURE
Prescriptions:
No Action
cholecalciferol (vitamin D3) [Vitamin D3] 25 mcg (1,000 unit) Capsule
25 mcg PO DAILY Qty: 0
ibuprofen 600 mg tablet
600 mg PO QID PRN (Reason: fever or pain) Qty: 20 0RF
hydrochlorothiazide 50 mg Tablet
50 mg PO DAILY
lorazepam 0.5 mg Tablet
0.5 mg PO BID PRN (Reason: anxiety)
oxycodone-acetaminophen [Percocet] 10-325 mg Tablet
1 tab PO Q5H PRN (Reason: pain)
pantoprazole [Protonix] 40 mg Tablet,Delayed Release (Dr/Ec)
40 mg PO DAILY
methimazole 5 mg Tablet
2.5 mg PO Q48H
zolpidem [Ambien] 10 mg Tablet
10 mg PO HS PRN (Reason: to sleep)
multivitamin Tablet
1 tab PO DAILY
valsartan 80 mg Tablet
80 mg PO HS
aspirin 81 mg Tablet,Chewable
81 mg PO DAILY
bupropion HCl 150 mg Tablet Extended Release 24 Hr
150 mg PO DAILY
atorvastatin 80 mg Tablet
80 mg PO DAILY
methocarbamol 750 mg Tablet
750 mg PO Q8H PRN (Reason: muscle spasm)
clopidogrel 75 mg tablet
75 mg PO DAILY Qty: 30 6RF
Referrals:
Ranulfo Anne MD [Active, Orthopedics] - Next open appointment
Abilio Kramer DO [Family Provider, Internal Medicine]
Activity Restrictions/Additional Instructions:
IF YOU DEVELOP INCREASING/NEW PAIN, NUMBNESS, SWELLING, WEAKNESS, REDNESS/WARMTH, FEVER, OR OTHER WORRISOME SIGNS, GO TO THE ER IMMEDIATELY!
Interventions
Interventions:
*Risk Screen - Suicide Last Done: 07/07/25 02:03
*General Assessment Last Done: 07/07/25 05:25
*Neglect/Abuse Screening Last Done: 07/07/25 05:25
*ED- Fall Risk Assessment Last Done: 07/07/25 05:25
*ED COVID-19 Vaccine History Last Done: 07/07/25 05:25
*Nursing Disposition Last Done: 07/07/25 08:22
ED-Musculoskeletal Assessment Last Done: 07/07/25 05:26
Discharge Date and Time
Discharge Date/Time: 07/07/25 08:36
Print Language: [place]
[2025-07-07] MEDS: DILAUDID 0.5 MG IM (05:22)
[2025-07-07 06:48] VITALS: BP 173/91
[2025-07-07] MEDS: VALIUM INJECTION 5 MG IM (06:49)
[2025-07-07 08:21] VITALS: BP 165/78
== END 2025-07-07 08:36 | disposition home or self-care (01) ==
LOC: EMR 01:39
PROVIDERS: EMERGENCY PHYSICIAN Emergency Medicine; FAMILY PHYSICIAN Internal Medicine Geriatric Medicine
DX: M25.511 Pain in right shoulder (principal); E78.00 Pure hypercholesterolemia, unspecified; I10 Essential (primary) hypertension; G89.29 Other chronic pain; Z86.73 Personal history of transient ischemic attack (TIA), and cerebral infarction without residual deficits
CPT/HCPCS: 96372; 99284; 73030; 93005